=== PATIENT | female | born 1980 | race Caucasian/White ===

== ENCOUNTER 2024-07-08 14:01 | Emergency (ER) | payer OTHER ==
[2024-07-08 14:08] VITALS: BP 121/98; PULSE 82; RESP 20; TEMP 99.1; BMI 31.7
[2024-07-08] MEDS ORDERED: IBUPROFEN 400 MG TABLET (FP) PO ONE (15:47)
[2024-07-08] MEDS: IBUPROFEN 600 MG TABLET (FP) PO ONE (15:49)
[2024-07-08 16:51] LABS: HIV INTERPRETATION NEGATIVE (NEGATIVE)
== END 2024-07-08 16:12 | disposition home or self-care (01) ==
LOC: JERFT 14:01
DX: S83.91XA Sprain of unspecified site of right knee, initial encounter (principal); S93.401A Sprain of unspecified ligament of right ankle, initial encounter; W01.0XXA Fall on same level from slipping, tripping and stumbling without subsequent striking against object, initial encounter
CPT/HCPCS: 36415; 73562-TC-RT-FY; 73610-TC-RT-FY; 73630-TC-RT-FY; 86803; 87389; 99284-25